=== PATIENT | female | born 1945 | race Caucasian/White ===

== ENCOUNTER 2020-07-16 13:00 | Outpatient (CLI) | payer MEDICARE, OTHER | END 2020-07-16 14:00 | disposition home or self-care (01) | LOC: SMA 13:00 | PROVIDERS: ATTEND Family Medicine | DX: N63.21 Unspecified lump in the left breast, upper outer quadrant (principal); N64.89 Other specified disorders of breast | CPT/HCPCS: 76642; 77066 ==